=== PATIENT | female | born 1985 | race Caucasian/White ===

== ENCOUNTER 2019-01-01 18:23 | Emergency (ER) | payer OTHER ==
[~2019-01-01] VITALS: Ht 149.9 cm; Wt 59.0 kg
[2019-01-01 18:55] VITALS: BP 164/98
--- NOTE | 2019-01-01 18:57 | PHYS DOC ---
Past Medical History Past Medical History: Kidney Stone Adult General Chief Complaint Chief Complaint: BACK PAIN - NO INJURY HPI HPI Patient is a 33 year old female presents for low back pain that started today. Patient reports is treated for UTI last week, has completed antibiotics. She does have some dysuria. She is not having any vomiting. She has a history of kidney stones. She reports has progressively gotten worse and she cannot move without having back pain. She denies any falls or injury. Denies numbness or tingling, loss of bladder or bowel function. Review of Systems Review of Systems Constitutional: Denies fever or chills [] Eyes: Denies change in visual acuity, redness, or eye pain [] HENT: Denies nasal congestion or sore throat [] Respiratory: Denies cough or shortness of breath [] Cardiovascular: No additional information not addressed in HPI [] GI: Denies abdominal pain, nausea, vomiting, bloody stools or diarrhea [] : + dysuria [] Musculoskeletal: + back pain [] Integument: Denies rash or skin lesions [] Neurologic: Denies headache, focal weakness or sensory changes [] Endocrine: Denies polyuria or polydipsia [] All other systems were reviewed and found to be within normal limits, except as documented in this note. Current Medications Current Medications Current Medications Medications (Trade) Dose Ordered Sig/[facility] Start Time Stop Time Status Last Admin Dose Admin Cyclobenzaprine HCl (Flexeril) 10 mg 1X ONCE 01/01/19 19:00 01/01/19 19:01 DC 01/01/19 19:09 10 MG Ketorolac Tromethamine (Toradol Im) 30 mg 1X ONCE 01/01/19 19:00 01/01/19 19:01 DC 01/01/19 19:09 30 MG Allergies Allergies Allergies Coded Allergies Type Severity Reaction Last Updated Verified Penicillins Allergy Intermediate Swelling 09/29/15 Yes morphine Allergy Mild Itching 09/29/15 Yes Physical Exam Physical Exam Constitutional: Well developed, well nourished, no acute distress, non-toxic appearance. [] Cardiovascular:Heart rate regular rhythm, no murmur [] Lungs & Thorax: Bilateral breath sounds clear to auscultation [] Abdomen: Bowel sounds normal, soft, no tenderness, no masses, no pulsatile masses. [] Skin: Warm, dry, no erythema, no rash. [] Back: LUMBAR TENDERNESS, no CVA tenderness. [] Extremities: No tenderness, no cyanosis, no clubbing, ROM intact, no edema. [] Neurologic: Alert and oriented X 3, normal motor function, normal sensory function, no focal deficits noted. [] Psychologic: Affect normal, judgement normal, mood normal. [] Current Patient Data Vital Signs Vital Signs Date Time Temp Pulse Resp B/P (MAP) Pulse Ox O2 Delivery O2 Flow Rate FiO2 01/01/19 18:55 98.3 73 16 164/98 (120) 97 Room Air 98.3 Lab Values Laboratory Tests Test 01/01/19 19:02 01/01/19 19:03 Urine Collection Type Unknown Urine Color Yellow Urine Clarity Clear Urine pH 6.5 Urine Specific [place] 1.020 Urine Protein Negative mg/dL (NEG-TRACE) Urine Glucose (UA) Negative mg/dL (NEG) Urine Ketones (Stick) Negative mg/dL (NEG) Urine Blood Negative (NEG) Urine Nitrite Negative (NEG) Urine Bilirubin Negative (NEG) Urine Urobilinogen Dipstick 1.0 mg/dL (0.2 mg/dL) Urine Leukocyte Esterase Trace (NEG) Urine RBC 0 /HPF (0-2) Urine WBC 1-4 /HPF (0-4) Urine Squamous Epithelial Cells Many /LPF Urine Bacteria Many /HPF (0-FEW) Urine Mucus Marked /LPF POC Urine HCG, Qualitative Hcg negative (Negative) EKG EKG [] Radiology/Procedures Radiology/Procedures [] Course & Med Decision Making Course & Med Decision Making Pertinent Labs and Imaging studies reviewed. (See chart for details) [UA negative, appears contaminated. Patient treated for musculoskeletal back pain. Signs or symptoms of cauda equina syndrome, stable for discharge home.] Dragon Disclaimer Dragon Disclaimer This electronic medical record was generated, in whole or in part, using a voice recognition dictation system. Departure Departure Impression: Primary Impression: Acute back pain Disposition: 01 HOME, SELF-CARE Condition: STABLE Referrals: MIRANDA SALCEDO MD (PCP) Patient Instructions: Back Pain, Adult Scripts Naproxen (NAPROSYN) 500 Mg Tablet 500 MG PO BID PRN for PAIN, #20 TAB Prov: CHATO WRAY AIR HOIST OPERATOR 01/01/19 Orphenadrine Citrate (ORPHENADRINE CITRATE) 100 Mg Tablet.er 1 TAB PO BID, #20 TAB 1 Refill Prov: CHATO WRAY APRN 01/01/19 CHATO WRAY APRN Jan 01, 2019 18:57
[2019-01-01] MEDS ORDERED: KETOROLAC 60 MG/2 ML VIAL. IM ONE (19:00)
[2019-01-01] MEDS ORDERED: CYCLOBENZAPRINE 10 MG TABLET. PO ONE (19:00)
[2019-01-01 19:11] LABS: BILIRUBIN,URINE NEGATIVE (NEG); CLARITY,URINE CLEAR; COLOR,URINE YELLOW; NITRITE,URINE NEGATIVE (NEG); PH,URINE 6.5; PROTEIN,URINE NEGATIVE (NEG-TRACE)
[2019-01-01 19:22] LABS: BACTERIA,URINE MANY /HPF (0-FEW); RBC,URINE 0 /HPF (0-2); SQUAMOUS EPITHELIAL CELL,UR MANY /LPF
[2019-01-01] MEDS ORDERED: ORPH100T PO (19:34)
[2019-01-01] MEDS ORDERED: NAPR-683 PO (19:34)
== END 2019-01-01 19:45 | disposition home or self-care (01) ==
LOC: ER 18:23
DX: M54.5 Low back pain (principal); R30.0 Dysuria; Z87.442 Personal history of urinary calculi; Z87.440 Personal history of urinary (tract) infections; Z88.0 Allergy status to penicillin; Z88.5 Allergy status to narcotic agent
CPT/HCPCS: 81001; 81025; 87086; 87186; 96372; 99283; J1885

== ENCOUNTER 2020-06-25 22:38 | Emergency (ER) | payer MEDICAID, OTHER ==
[~2020-06-25] VITALS: Ht 149.9 cm; Wt 61.4 kg
[~2020-06-25 22:38] MED LIST: NAPR-683 PO; ORPH100T PO
[2020-06-25] MEDS ORDERED: IV NORMAL SALINE 1000ML BAG 1,000 ML IV ONE ×2 (22:45→23:45)
[2020-06-25 23:22] LABS: BASO # 0.1 x10^3/uL (0.0-0.2); BASO % 1 % (0-3); EOS # 0.1 x10^3/uL (0.0-0.7); EOS % 1 % (0-3); HEMATOCRIT 44.8 % (36.0-47.0); HEMOGLOBIN 15.5 g/dL (12.0-15.5); LYMPH # 2.4 x10^3/uL (1.0-4.8); LYMPH % 16 % (24-48); MEAN CORPUSCULAR HEMOGLOBIN 36 pg (25-35); MEAN CORPUSCULAR HGB CONC 35 g/dL (31-37); MEAN CORPUSCULAR VOLUME 104 fL (79-100); MONO # 0.7 x10^3/uL (0.0-1.1); MONO % 5 % (0-9); NEUT # 11.9 x10^3/uL (1.8-7.7); NEUT % 78 % (31-73); PLATELET COUNT 261 x10^3/uL (140-400); RED BLOOD COUNT 4.31 x10^6/uL (3.50-5.40); RED CELL DISTRIBUTION WIDTH 14.3 % (11.5-14.5); WHITE BLOOD COUNT 15.2 x10^3/uL (4.0-11.0)
--- NOTE | 2020-06-25 23:29 | PHYS DOC ---
Past Medical History Past Medical History: Kidney Stone Past Surgical History: Cholecystectomy, Smoking Status: Current Every Day Smoker Alcohol Use: Heavy Drug Use: Marijuana General Adult EDM: Chief Complaint: ABDOMINAL PAIN HPI: HPI: The history was obtained from the patient. Patient is a 34-year-old female with PMH cholecystectomy, pancreatitis, alcohol abuse who presents with a chief complaint of epigastric abdominal comfort that began suddenly 3 hours prior to arrival. She states the pain is sharp in nature. States pain is constant. She states she did try at home hydrocodone that she was recently prescribed for tooth pain which made her pain worse. She notes nausea without vomiting. States this feels similar to previous pancreatitis episodes. Notes that she drinks one half fifth of rum daily but does not drink today. Notes a history of pancreatitis induced by gallstones but had her gallbladder removed. Denies fe vers. Denies chest pain or shortness of breath. Denies syncope. Denies urinary symptoms. No other complaints. Review of Systems: Review of Systems: Constitutional: Denies fever or chills. [] Eyes: Denies change in visual acuity. [] HENT: Denies nasal congestion or sore throat. [] Respiratory: Denies cough or shortness of breath. [] Cardiovascular: Denies chest pain or edema. [] GI: Positive for abdominal pain and nausea : Denies dysuria. [] Musculoskeletal: Denies back pain or joint pain. [] Integument: Denies rash. [] Neurologic: Denies headache, focal weakness or sensory changes. [] Endocrine: Denies polyuria or polydipsia. [] Lymphatic: Denies swollen glands. [] Psychiatric: Denies depression or anxiety. [] Heart Score: Risk Factors: Risk Factors: DM, Current or recent (<one month) smoker, HTN, HLP, family history of CAD, obesity. Risk Scores: Score 0 - 3: 2.5% MACE over next 6 weeks - Discharge Home Score 4 - 6: 20.3% MACE over next 6 weeks - Admit for Clinical Observation Score 7 - 10: 72.7% MACE over next 6 weeks - Early Invasive Strategies Current Medications: Current Medications Medications (Trade) Dose Ordered Sig/El[facility] Start Time Stop Time Status Last Admin Dose Admin Diphenhydramine HCl (Benadryl) 50 mg 1X ONCE 06/25/20 23:30 06/25/20 23:31 UNV Metoclopramide HCl (Reglan Vial) 10 mg 1X ONCE 06/25/20 23:30 06/25/20 23:31 Morphine Sulfate (Morphine Sulfate) 4 mg 1X ONCE 06/25/20 23:30 06/25/20 23:31 Sodium Chloride 1,000 ml @ 1,000 mls/hr 1X ONCE 06/25/20 22:45 06/25/20 23:44 Allergies: Allergies: Allergies Coded Allergies Type Severity Reaction Last Updated Verified Penicillins Allergy Intermediate Swelling 09/29/15 Yes morphine Allergy Mild Itching 09/29/15 Yes sulfamethoxazole Allergy Unknown 06/25/20 Yes trimethoprim Allergy Unknown 06/25/20 Yes Physical Exam: PE: Constitutional: Well developed, well nourished, no acute distress, non-toxic appearance. [] HENT: Normocephalic, atraumatic, bilateral external ears normal, oropharynx moist, no oral exudates, nose normal. [] Eyes: PERRLA, EOMI, conjunctiva normal, no discharge. [] Neck: Normal range of motion, no tenderness, supple, no stridor. [] Cardiovascular:Heart rate regular rhythm, no murmur [] Lungs & Thorax: Bilateral breath sounds clear to auscultation [] Abdomen: Tenderness palpation in the epigastric region. No involuntary guarding or rigidity noted. No acute peritonitis. Skin: Warm, dry, no erythema, no rash. [] Back: No tenderness, no CVA tenderness. [] Extremities: No tenderness, no cyanosis, no clubbing, ROM intact, no edema. [] Neurologic: Alert and oriented X 3, normal motor function, normal sensory function, no focal deficits noted. [] Psychologic: Affect normal, judgement normal, mood normal. [] Current Patient Data: Labs: Laboratory Tests Test 06/25/20 23:13 06/25/20 23:55 06/26/20 00:04 White Blood Count 15.2 x10^3/uL Red Blood Count 4.31 x10^6/uL Hemoglobin 15.5 g/dL Hematocrit 44.8 % Mean Corpuscular Volume 104 fL Mean Corpuscular Hemoglobin 36 pg Mean Corpuscular Hemoglobin Concent 35 g/dL Red Cell Distribution Width 14.3 % Platelet Count 261 x10^3/uL Neutrophils (%) (Auto) 78 % Lymphocytes (%) (Auto) 16 % Monocytes (%) (Auto) 5 % Eosinophils (%) (Auto) 1 % Basophils (%) (Auto) 1 % Neutrophils # (Auto) 11.9 x10^3/uL Lymphocytes # (Auto) 2.4 x10^3/uL Monocytes # (Auto) 0.7 x10^3/uL Eosinophils # (Auto) 0.1 x10^3/uL Basophils # (Auto) 0.1 x10^3/uL Sodium Level 136 mmol/L Potassium Level 2.9 mmol/L Chloride Level 101 mmol/L Carbon Dioxide Level 24 mmol/L Anion Gap 11 Blood Urea Nitrogen 4 mg/dL Creatinine 0.8 mg/dL Estimated GFR (Cockcroft-Gault) 81.6 BUN/Creatinine Ratio 5 Glucose Level 158 mg/dL Calcium Level 8.8 mg/dL Magnesium Level 1.5 mg/dL Total Bilirubin 1.0 mg/dL Aspartate Amino Transf (AST/SGOT) 249 U/L Alanine Aminotransferase (ALT/SGPT) 53 U/L Alkaline Phosphatase 135 U/L Total Protein 7.3 g/dL Albumin 3.3 g/dL Albumin/Globulin Ratio 0.8 Lipase 49 U/L Ethyl Alcohol Level < 10 mg/dL Urine Collection Type Unknown Urine Color Otilia Urine Clarity Clear Urine pH 6.0 Urine Specific [place] >=1.030 Urine Protein 30 mg/dL Urine Glucose (UA) Negative mg/dL Urine Ketones (Stick) Negative mg/dL Urine Blood Negative Urine Nitrite Negative Urine Bilirubin Small Urine Urobilinogen Dipstick 1.0 mg/dL Urine Leukocyte Esterase Negative Urine RBC 0 /HPF Urine WBC 5-10 /HPF Urine Squamous Epithelial Cells Many /LPF Urine Bacteria Many /HPF Urine Mucus Marked /LPF Bedside Urine HCG, Qualitative Hcg negative Current Medications Medications (Trade) Dose Ordered Sig/[facility] Route PRN Reason Start Time Stop Time Status Last Admin Dose Admin Sodium Chloride 1,000 ml @ 1,000 mls/hr 1X ONCE IV 06/25/20 22:45 06/25/20 23:44 DC 06/25/20 23:52 Metoclopramide HCl (Reglan Vial) 10 mg 1X ONCE IVP 06/25/20 23:30 06/25/20 23:31 DC 06/25/20 23:52 Morphine Sulfate (Morphine Sulfate) 4 mg 1X ONCE IV 06/25/20 23:30 06/25/20 23:31 DC 06/25/20 23:53 Diphenhydramine HCl (Benadryl) 50 mg 1X ONCE IVP 06/25/20 23:30 06/25/20 23:31 DC 06/25/20 23:53 Sodium Chloride 1,000 ml @ 200 mls/hr 1X ONCE IV 06/25/20 23:45 06/26/20 04:44 06/26/20 01:30 Magnesium Sulfate 50 ml @ 50 mls/hr 1X ONCE IV 06/25/20 23:55 06/26/20 00:54 DC Potassium Chloride/Water 100 ml @ 100 mls/hr Q1H IV 06/26/20 00:00 06/26/20 03:59 06/26/20 01:32 Iohexol (Omnipaque 300 Mg/ml) 75 ml 1X ONCE IV 06/26/20 00:30 06/26/20 00:31 DC 06/26/20 00:55 Info (CONTRAST GIVEN -- Rx MONITORING) 1 each PRN DAILY PRN MC SEE COMMENTS 06/26/20 00:30 06/28/20 00:29 Ciprofloxacin/ Dextrose 200 ml @ 200 mls/hr 1X ONCE IV 06/26/20 00:30 06/26/20 01:29 DC 06/26/20 01:36 Folic Acid (Folic Acid) 1 mg 1X ONCE PO 06/26/20 00:45 06/26/20 00:46 DC 06/26/20 01:32 Thiamine Mononitrate (Vitamin B-1) 100 mg 1X ONCE PO 06/26/20 00:45 06/26/20 00:46 DC 06/26/20 01:32 Vital Signs: Vital Signs Date Time Temp Pulse Resp B/P (MAP) Pulse Ox O2 Delivery O2 Flow Rate FiO2 06/25/20 23:53 20 99 Room Air Vital Signs Date Time Temp Pulse Resp B/P (MAP) Pulse Ox O2 Delivery O2 Flow Rate FiO2 06/25/20 23:53 20 99 Room Air EKG: EKG: [] EKG consistent with normal sinus rhythm. Ventricular rate of 66 bpm. Blackey normal. Left atrial enlargement appreciated. Intervals normal. No acute ischemic changes appreciated. Radiology/Procedures: Radiology/Procedures: [][facility] [address] [place] [address] IMAGING REPORT Signed PATIENT: FRAN HSU MACCOUNT: [id number] : 1985 LOCATION: ER AGE: 34 SEX: F EXAM STATUS: REG ER ORD. PHYSICIAN: DREW MCCULLOUGH DO REASON: epigastric pain. h/o pancreatitis PROCEDURE: CT ABD PELV W/ IV CONTRST ONLY INDICATION: Reason: epigastric pain. h/o pancreatitis / Spl. Instructions: [id number] 75ML / History: COMPARISON: December 2011 TECHNIQUE: Axial CT images obtained through the abdomen and pelvis with contrast. One or more of the following individualized dose reduction techniques were utilized for this examination: 1. Automated exposure control; 2. Adjustment of the mA and/or kV according to patient size; 3. Use of iterative reconstruction technique. FINDINGS: Abdominal aorta is not aneurysmal. Scattered plaque is seen. Liver is low density which can be seen with fatty infiltration. Postcholecystectomy. No peripancreatic fluid collection. Spleen unremarkable. No hydronephrosis. Urinary bladder is partially distended. Intrauterine device is seen. Nonobstructive right renal stone, 2 mm. Low-density lesion lower pole the right kidney which is typically benign in a patient of this age. No periappendiceal inflammation. There are some prominent fluid within the small bowel. No high-grade transition point to suggest obstruction. Intrauterine device at lower uterine segment with T portion extending into myometrium. IMPRESSION: * There are some mildly prominent loops of small bowel without evidence of a transition point to suggest obstruction. * No hydronephrosis or evidence of appendicitis Electronically signed by: Mireya Solano MD (06/26/2020 1:53 AM) [id number] DICTATED and SIGNED BY: MIREYA SOLANO MD DATE: 06/26/20 0153 Course & Med Decision Making: Course & Med Decision Making Pertinent Labs and Imaging studies reviewed. (See chart for details) [] Patient is a 34-year-old female presents with chief complaint of nausea with abdominal pain and loose stool. Initial vital signs unremarkable. Physical exam noted above. She does note a history of daily alcohol usage. Patient does have multiple electrolyte abnormalities including a potassium of 2.6. Low magnesium. Kidney function normal. Urinalysis does show findings concerning for infection. Leukocytosis of approximately 15,000. Could be related to her recent vomiting versus infection. CT imaging reveals no acute surgical abnormality. She does have some nonspecific inflammatory findings in the bowel. Patient did have her potassium initially replaced intravenously. She was given oral magnesium. I did discuss results of labs and imaging in great detail with the patient. I did recommend hospitalization for her severe electrolyte abnormality. Patient states due to childcare issues she cannot stay in the hospital. I did explain to the patient that severe electrolyte abnormalities can be undetectable until they are suddenly life-threatening. She did express understanding would like to leave AGAINST MEDICAL ADVICE. Patient does appear to have capacity at this time. She is alert and oriented x3. She does appear to have a basic understanding of her health care needs and potential consequences. She was encouraged to report back to emergency department at any time should she want to be reevaluated. Unfortunately she was unable to stay for intravenous magnesium replacement. She was given oral magnesium oxide. She will be discharged home with an oral course of potassium and magnesium. She also be discharged home with a course of ciprofloxacin given her multiple allergies to antibiotics. Return precautions discussed and understood. Philomena Disclaimer: Philomena Disclaimer: This electronic medical record was generated, in whole or in part, using a voice recognition dictation system. Departure Departure Impression: Primary Impression: Hypokalemia Additional Impressions: UTI (urinary tract infection) Qualified Codes: N39.0 - Urinary tract infection, site not specified Alcohol abuse Hypomagnesemia Disposition: 07 AGAINST MEDICAL ADVICE Condition: STABLE Referrals: VIKRAM MADRID MD (PCP) Patient Instructions: Hypokalemia Additional Instructions: Please return the emergency department at any time should you want to be reevaluated. He saw with your primary care physician in the next 2 to 3 days. [facility] [address] [place] [address] [facility] [address] [place] [address] [facility] [address] [place] [address] [facility] [address] [place] [address] [facility] [address] [place] [address] [facility] [address] [place] [address] [facility] [address] [place] [address] [facility] [address] [place] [address] [facility] [address] [place] [address] [facility] [address] [place] [address] Scripts Ciprofloxacin Hcl (CIPROFLOXACIN HCL) 250 Mg Tablet 1 TAB PO BID for 3 Days, #6 TAB Prov: DREW MCCULLOUGH DO 06/26/20 Ondansetron Hcl (ZOFRAN) 4 Mg Tablet 4 MG PO PRN TID PRN for NAUSEA, #15 nausea/vomiting Prov: DREW MCCULLOUGH DO 06/26/20 Magnesium Oxide (MAGNESIUM OXIDE) 400 Mg Tablet 1 TAB PO DAILY for 3 Days, #3 TAB 5 Refills Prov: DREW MCCULLOUGH DO 06/26/20 Potassium Chloride (POTASSIUM CHLORIDE ) 20 Meq Tablet.er 40 MEQ PO DAILY for SUPPLEMENT for 3 Days, #6 TAB.SR Prov: DREW MCCULLOUGH DO 06/26/20 Justicifation of Admission Dx: Justifications for Admission: Justification of Admission Dx: N/A DREW MCCULLOUGH DO Jun 25, 2020 23:29
[2020-06-25] MEDS ORDERED: MORPHINE SULFATE 4 MG/ML VIAL. IV ONE (23:30)
[2020-06-25] MEDS ORDERED: diphenhydrAMINE 50 MG/ML VIAL IVP ONE (23:30)
[2020-06-25] MEDS ORDERED: METOCLOPRAMIDE HCL 10 MG/2 ML VIAL. IVP ONE (23:30)
[2020-06-25 23:37] VITALS: BP 194/90
[2020-06-25 23:42] LABS: ALBUMIN 3.3 g/dL (3.4-5.0); ALBUMIN/GLOBULIN RATIO 0.8 (1.0-1.7); CALCIUM 8.8 mg/dL (8.5-10.1); CREATININE 0.8 mg/dL (0.6-1.0); GFR 81.6; TOTAL PROTEIN 7.3 g/dL (6.4-8.2)
[2020-06-25 23:45] LABS: POTASSIUM 2.9 mmol/L (3.5-5.1)
[2020-06-25] MEDS ORDERED: MAGNESIUM SULFATE 2GM 50 ML IV ONE (23:55)
[2020-06-26 00:08] LABS: BILIRUBIN,URINE SMALL (NEG); COLOR,URINE AMBER; NITRITE,URINE NEGATIVE (NEG); PROTEIN,URINE 30 mg/dL (NEG-TRACE)
[2020-06-26 00:21] LABS: CLARITY,URINE CLEAR; SQUAMOUS EPITHELIAL CELL,UR MANY /LPF
[2020-06-26 00:22] LABS: BACTERIA,URINE MANY /HPF (0-FEW); RBC,URINE 0 /HPF (0-2)
[2020-06-26] MEDS ORDERED: CIPROFLOXACIN 400MG PREMIX 200 ML IV ONE (00:30)
[2020-06-26] MEDS ORDERED: CONTRAST GIVEN. MC PRN (00:30)
[2020-06-26] MEDS ORDERED: IOHEXOL 300 MG/ML 100ML VIAL. IV ONE (00:30)
[2020-06-26] MEDS ORDERED: FOLIC ACID 1 MG TABLET. PO ONE (00:45)
[2020-06-26] MEDS ORDERED: THIAMINE 100 MG TABLET. PO ONE (00:45)
[2020-06-26] MEDS: POTASSIUM CHLORIDE 20MEQ 100 ML IV SCH ×3 (01:31→03:05)
--- NOTE | 2020-06-26 01:56 | RAD ---
INDICATION: Reason: epigastric pain. h/o pancreatitis / Spl. Instructions: [id number] 75ML / History: COMPARISON: December 2011 TECHNIQUE: Axial CT images obtained through the abdomen and pelvis with contrast. One or more of the following individualized dose reduction techniques were utilized for this examination: 1. Automated exposure control; 2. Adjustment of the mA and/or kV according to patient size; 3. Use of iterative reconstruction technique. FINDINGS: Abdominal aorta is not aneurysmal. Scattered plaque is seen. Liver is low density which can be seen with fatty infiltration. Postcholecystectomy. No peripancreatic fluid collection. Spleen unremarkable. No hydronephrosis. Urinary bladder is partially distended. Intrauterine device is seen. Nonobstructive right renal stone, 2 mm. Low-density lesion lower pole the right kidney which is typically benign in a patient of this age. No periappendiceal inflammation. There are some prominent fluid within the small bowel. No high-grade transition point to suggest obstruction. Intrauterine device at lower uterine segment with T portion extending into myometrium. IMPRESSION: * There are some mildly prominent loops of small bowel without evidence of a transition point to suggest obstruction. * No hydronephrosis or evidence of appendicitis Electronically signed by: Eitan Palafox MD (06/26/2020 1:53 AM) [id number]
[2020-06-26] MEDS ORDERED: MAGN400T5 PO (02:23)
[2020-06-26] MEDS ORDERED: CIPR250T PO (02:23)
[2020-06-26] MEDS ORDERED: ONDA4TAB7 PO (02:23)
[2020-06-26] MEDS ORDERED: POTA20TA4 PO (02:23)
[2020-06-26] MEDS ORDERED: MAGNESIUM OXIDE 400 MG TABLET PO ONE (02:30)
--- NOTE | 2020-06-26 07:20 | EKG ---
[facility] [address] [place] [address] Test Date: 2020-06-26 Test Time: 02:28:26 Pat Name: FRAN HSU Department: Room: Gender: F Firewall Engineer: : 1985 Requested By: DREW MCCULLOUGH Order Number: [id number] Reading MD: Measurements Intervals [place] Rate: 66 P: 47 CA: 158 QRS: 24 QRSD: 66 T: 31 QT: 428 QTc: 451 Interpretive Statements SINUS RHYTHM LEFT ATRIAL ABNORMALITY QRS(T) CONTOUR ABNORMALITY CONSISTENT WITH ANTEROSEPTAL INFARCT AGE UNDETERMINED ABNORMAL ECG RI6.02 No previous ECG available for comparison
== END 2020-06-26 03:16 | disposition left against medical advice (07) ==
LOC: ER 22:38
DX: N39.0 Urinary tract infection, site not specified (principal); E87.6 Hypokalemia; E83.42 Hypomagnesemia; F10.10 Alcohol abuse, uncomplicated; R11.0 Nausea; F12.90 Cannabis use, unspecified, uncomplicated; F17.200 Nicotine dependence, unspecified, uncomplicated; Z90.49 Acquired absence of other specified parts of digestive tract; Z98.890 Other specified postprocedural states; Z88.0 Allergy status to penicillin; Z87.442 Personal history of urinary calculi; Z88.6 Allergy status to analgesic agent; Z88.2 Allergy status to sulfonamides; Z88.8 Allergy status to other drugs, medicaments and biological substances
CPT/HCPCS: 36415; 74177; 80053; 81001; 81025; 83690; 83735; 85025; 87086; 93005; 96361; 96365; 96375; 99285; G0480; J0744; J1200; J2270; J2765; J3480; J7030; Q9967; 87077; 87186

== ENCOUNTER 2020-07-06 19:06 | Emergency (ER) | payer MEDICAID ==
[~2020-07-06] VITALS: Ht 149.9 cm; Wt 61.3 kg
[~2020-07-06 19:06] MED LIST changes: +CIPR250T PO; +MAGN400T5 PO; +ONDA4TAB7 PO; +POTA20TA4 PO
[2020-07-06] MEDS ORDERED: IV NORMAL SALINE 1000ML BAG 1,000 ML IV ONE (20:30)
[2020-07-06] MEDS ORDERED: ONDANSETRON PF 4 MG/2 ML VIAL. IVP ONE (20:30)
[2020-07-06] MEDS ORDERED: FAMOTIDINE 20 MG/2 ML VIAL IVP ONE (20:30)
[2020-07-06] MEDS ORDERED: KETOROLAC 15 MG/ML VIAL. IVP ONE (20:30)
[2020-07-06 20:39] LABS: CLARITY,URINE TURBID; COLOR,URINE ORANGE
[2020-07-06 20:48] LABS: SQUAMOUS EPITHELIAL CELL,UR OCC /LPF
[2020-07-06 20:50] LABS: BACTERIA,URINE 0 /HPF (0-FEW); RBC,URINE 0 /HPF (0-2); WBC,URINE 0 /HPF (0-4)
[2020-07-06 20:51] LABS: AMORPHOUS SEDIMENT,UR PRESENT /HPF
--- NOTE | 2020-07-06 21:03 | PHYS DOC ---
Past Medical History Past Medical History: Gallstones, Hypertension, Kidney Stone, Pancreatitis, Other Additional Past Medical Histor: ETOH Past Surgical History: Cholecystectomy, Smoking Status: Current Every Day Smoker Alcohol Use: Heavy Additional Information: REPORTS DRINKING 1/2 PINT RUM DAILY Drug Use: Marijuana General Adult EDM: Chief Complaint: ABDOMINAL PAIN HPI: HPI: Patient is a 34 year old F who presents with periumbilical abdominal pain that began this morning when she woke up. She rated it a 11/10 this morning, and is now a 8/10. Does not radiate anywhere and describes it as a burning pain. She states that nothing makes the pain better, and drinking fluids makes it worse. She complains of nausea and has vomited about 6x today, she is unable to keep any fluids down. She states that she drank about 1/2-1 pint this weekend. She states that she has had pancreatitis in the past and this pain feels similar. Review of Systems: Review of Systems: Constitutional: Denies fever or chills Eyes: Denies redness or eye pain HENT: Denies nasal congestion or sore throat Respiratory: Denies cough or shortness of breath Cardiovascular: Denies chest pain or palpitations : Denies dysuria or hematuria Musculoskeletal: Denies back pain or joint pain Integument: Denies rash or skin lesions Neurologic: Denies headache or changes in vision. Complete systems were reviewed and found to be within normal limits, except as documented in this note. Current Medications: Current Medications Medications (Trade) Dose Ordered Sig/[facility] Start Time Stop Time Status Last Admin Dose Admin Famotidine (Pepcid Vial) 20 mg 1X ONCE 07/06/20 20:30 07/06/20 20:35 DC Ketorolac Tromethamine (Toradol 15mg Vial) 15 mg 1X ONCE 07/06/20 20:30 07/06/20 20:35 DC Ondansetron HCl (Zofran) 4 mg 1X ONCE 07/06/20 20:30 07/06/20 20:35 DC Sodium Chloride 1,000 ml @ 1,000 mls/hr 1X ONCE 07/06/20 20:30 07/06/20 21:29 Allergies: Allergies: Allergies Coded Allergies Type Severity Reaction Last Updated Verified Penicillins Allergy Intermediate Swelling 09/29/15 Yes morphine Allergy Mild Itching 09/29/15 Yes sulfamethoxazole Allergy Unknown 06/25/20 Yes trimethoprim Allergy Unknown 06/25/20 Yes Physical Exam: PE: Constitutional: Well developed, well nourished female. HENT: Normocephalic, atraumatic Eyes: Conjunctiva normal, no discharge Neck: Normal range of motion, supple Lungs & Thorax: No respiratory distress, equal chest rise and fall Abdomen: Soft, tender to palpation in midline. No hepatomegaly. Skin: Warm, dry, no erythema, no rash Back: No tenderness, no CVA tenderness Extremities: ROM intact, no edema Neurologic: Alert and oriented X 3, no focal deficits noted Psychologic: Affect normal, judgment normal Current Patient Data: Labs: Laboratory Tests Test 07/06/20 19:30 07/06/20 19:37 Urine Collection Type Unknown Urine Color [place] Urine Clarity Turbid Urine pH (<5.0-8.0) Urine Specific [place] (1.000-1.030) Urine Protein mg/dL (NEG-TRACE) Urine Glucose (UA) mg/dL (NEG) Urine Ketones (Stick) mg/dL (NEG) Urine Blood (NEG) Urine Nitrite (NEG) Urine Bilirubin (NEG) Urine Urobilinogen Dipstick mg/dL (0.2 mg/dL) Urine Leukocyte Esterase (NEG) Urine RBC 0 /HPF (0-2) Urine WBC 0 /HPF (0-4) Urine Squamous Epithelial Cells Occ /LPF Urine Amorphous Sediment Present /HPF Urine Bacteria 0 /HPF (0-FEW) Urine Mucus Marked /LPF POC Urine HCG, Qualitative Hcg negative (Negative) Vital Signs: Vital Signs Date Time Temp Pulse Resp B/P (MAP) Pulse Ox O2 Delivery O2 Flow Rate FiO2 07/06/20 19:15 100.6 122 18 106/63 (77) 98 Room Air 100.6 EKG: EKG: @20:40 Normal sinuse rhythm with no ST elevations or T wave inversions. QRS 70ms, QT 362ms, QTc 458ms. Radiology/Procedures: Radiology/Procedures: PROCEDURE: CT ABD PELV W/ IV CONTRST ONLY Examination: CT of the abdomen pelvis with IV contrast HISTORY: History of abdominal pain, fever COMPARISON: 06/25/2020 TECHNIQUE: Axial CT images of the abdomen pelvis were performed with IV contrast. Coronal and sagittal reformats are performed. Exposure: One or more of the following individualized dose reduction techniques were utilized for this examination: 1. Automated exposure control 2. Adjustment of the mA and/or kV according to patient size 3. Use of iterative reconstruction technique FINDINGS: The bibasilar lungs are clear. No evidence of free air identified in the abdomen. The visualized liver, spleen, adrenals grossly appears unremarkable. Cholecystectomy clips identified. The stomach is mildly distended. The visualized pancreas grossly appears unremarkable. The small bowel is nondilated. There is mild diffuse thickened appearance of the wall of the colon throughout with surrounding mild fat stranding likely diffuse colitis. Urinary bladder is mildly distended. The appendix is normal the bilateral kidneys enhance symmetrically. Punctate 2 mm calculi identified in the bilateral kidneys. Cystic structure identified in the right kidney likely a cyst. No evidence of lytic bony destructive lesion. IMPRESSION: 1. Diffuse thickened appearance of the wall of the colon surrounding fat stranding likely colitis. 2. Punctate bilateral intrarenal collecting system calculi. Electronically signed by: Won Fuentes MD (07/07/2020 12:00 AM) [id number] Course & Med Decision Making: Course & Med Decision Making 34 yo F presented with periumbilical abdominal pain and nausea/vomiting since this morning. History of pancreatitis and alcohol abuse. States she drank 1/2-1 pint of liquor both Monday and Monday. Nausea and pain controlled with zofran and torodol respectively. 1L NS IVF given. Urine negative. Abd/pelvis CT revealed diffuse thickened appearance of the wall of the colon surrounding fat stranding most likely colitis. Pain medication and empiric antibiotics given upon d/c. (See chart for details) Dragon Disclaimer: [place]omena Disclaimer: This electronic medical record was generated, in whole or in part, using a voice recognition dictation system. Departure Departure Impression: Primary Impression: Colitis Additional Impression: Alcohol abuse Disposition: 01 HOME, SELF-CARE Condition: STABLE Referrals: VIKRAM MADRID MD (PCP) ZINA OCHOA MD Patient Instructions: Alcohol and Drug Addiction, Finding Treatment, Alcohol, FAQs, Colitis Scripts Famotidine (PEPCID) 20 Mg Tablet 20 MG PO BID, #10 TAB Prov: VIKRAM SO DO 07/07/20 Hydrocodone/Apap 5-325 (NORCO 5-325 TABLET) 1 Each Tablet 1 TAB PO PRN Q6HRS PRN for PAIN, #10 TAB 0 Refills Prov: VIKRAM SO DO 07/07/20 Ondansetron (ONDANSETRON ODT) 4 Mg Tab.rapdis 1 TAB PO PRN Q6-8HRS PRN for NAUSEA, #16 TAB Prov: VIKRAM SO DO 07/07/20 Metronidazole (FLAGYL) 500 Mg Tablet 500 MG PO TID, #21 TAB Prov: VIKRAM SO DO 07/07/20 Ciprofloxacin Hcl (CIPRO) 500 Mg Tablet 1 TAB PO BID, #14 TAB Prov: VIKRAM SO DO 07/07/20 Justicifation of Admission Dx: Justifications for Admission: Justification of Admission Dx: N/A VIKRAM SO DO Jul 06, 2020 21:03
[2020-07-06 21:56] LABS: BASO # 0.1 x10^3/uL (0.0-0.2); BASO % 1 % (0-3); EOS % 0 % (0-3); LYMPH # 2.8 x10^3/uL (1.0-4.8); LYMPH % 16 % (24-48); MEAN CORPUSCULAR HEMOGLOBIN 36 pg (25-35); MEAN CORPUSCULAR HGB CONC 35 g/dL (31-37); MEAN CORPUSCULAR VOLUME 103 fL (79-100); MONO # 1.3 x10^3/uL (0.0-1.1); MONO % 7 % (0-9); NEUT # 13.3 x10^3/uL (1.8-7.7); NEUT % 76 % (31-73); PLATELET COUNT 352 x10^3/uL (140-400); RED BLOOD COUNT 4.47 x10^6/uL (3.50-5.40); RED CELL DISTRIBUTION WIDTH 13.9 % (11.5-14.5); WHITE BLOOD COUNT 17.6 x10^3/uL (4.0-11.0)
[2020-07-06 22:07] LABS: PROTHROMBIN TIME PATIENT 13.6 SEC (11.7-14.0)
[2020-07-06 22:18] LABS: % BANDS 1 % (0-9); % LYMPHS 14 % (24-48); % MONOS 6 % (0-10); % SEGS 79 % (35-66); PLT ESTIMATE ADEQUATE (ADEQUATE)
[2020-07-06 22:24] LABS: AMPHETAMINE/METHAMPHETAMINE NEG (NEG); BARBITURATES NEG (NEG); BENZODIAZEPINES NEG (NEG); CANNABINOIDS POS (NEG); COCAINE NEG (NEG); METHADONE NEG (NEG); OPIATES NEG (NEG); PHENCYCLIDINE NEG (NEG)
[2020-07-06 23:33] LABS: CALCIUM 8.8 mg/dL (8.5-10.1); CREATININE 0.8 mg/dL (0.6-1.0); GFR 81.6; POTASSIUM 3.5 mmol/L (3.5-5.1)
[2020-07-06 23:38] LABS: ALBUMIN 3.4 g/dL (3.4-5.0); ALBUMIN/GLOBULIN RATIO 1.1 (1.0-1.7); TOTAL BILIRUBIN 0.9 mg/dL (0.2-1.0); TOTAL PROTEIN 6.5 g/dL (6.4-8.2)
[2020-07-06] MEDS ORDERED: CONTRAST GIVEN. MC PRN (23:45)
[2020-07-06 23:48] LABS: CREATINE KINASE 58 U/L (26-192)
[2020-07-07] MEDS ORDERED: IOHEXOL 300 MG/ML 100ML VIAL. IV ONE
--- NOTE | 2020-07-07 00:03 | RAD ---
Examination: CT of the abdomen pelvis with IV contrast HISTORY: History of abdominal pain, fever COMPARISON: 06/25/2020 TECHNIQUE: Axial CT images of the abdomen pelvis were performed with IV contrast. Coronal and sagittal reformats are performed. Exposure: One or more of the following individualized dose reduction techniques were utilized for this examination: 1. Automated exposure control 2. Adjustment of the mA and/or kV according to patient size 3. Use of iterative reconstruction technique FINDINGS: The bibasilar lungs are clear. No evidence of free air identified in the abdomen. The visualized liver, spleen, adrenals grossly appears unremarkable. Cholecystectomy clips identified. The stomach is mildly distended. The visualized pancreas grossly appears unremarkable. The small bowel is nondilated. There is mild diffuse thickened appearance of the wall of the colon throughout with surrounding mild fat stranding likely diffuse colitis. Urinary bladder is mildly distended. The appendix is normal the bilateral kidneys enhance symmetrically. Punctate 2 mm calculi identified in the bilateral kidneys. Cystic structure identified in the right kidney likely a cyst. No evidence of lytic bony destructive lesion. IMPRESSION: 1. Diffuse thickened appearance of the wall of the colon surrounding fat stranding likely colitis. 2. Punctate bilateral intrarenal collecting system calculi. Electronically signed by: Won Fuentes MD (07/07/2020 12:00 AM) [id number]
[2020-07-07] MEDS ORDERED: ONDANSETRON PF 4 MG/2 ML VIAL. IVP ONE (01:00)
[2020-07-07 01:30] VITALS: BP 181/105
[2020-07-07] MEDS ORDERED: metroNIDAZOLE 500 MG TABLET PO ONE (01:30)
[2020-07-07] MEDS ORDERED: CIPROFLOXACIN HCL 250 MG TABLET. PO ONE (01:30)
[2020-07-07] MEDS ORDERED: HYDR-3164 PO (01:31)
[2020-07-07] MEDS ORDERED: METR500T PO (01:31)
[2020-07-07] MEDS ORDERED: ONDA4TAB12 PO (01:31)
[2020-07-07] MEDS ORDERED: FAMO-63 PO (01:31)
[2020-07-07] MEDS ORDERED: CIPR500T94 PO (01:31)
--- NOTE | 2020-07-07 04:12 | EKG ---
[facility] [address] [place] [address] Test Date: 2020-07-06 Test Time: 20:40:57 Pat Name: FRAN HSU Department: Room: Gender: F [employer]: : 1985 Requested By: VIKRAM SO Order Number: [id number] Reading MD: Measurements Intervals [place] Rate: 95 P: 50 RI: 138 QRS: 18 QRSD: 70 T: 46 QT: 362 QTc: 458 Interpretive Statements SINUS RHYTHM LEFT ATRIAL ABNORMALITY QRS(T) CONTOUR ABNORMALITY CONSISTENT WITH SEPTAL INFARCT AGE UNDETERMINED ABNORMAL ECG RI6.02 No previous ECG available for comparison
== END 2020-07-07 01:42 | disposition home or self-care (01) ==
LOC: ER 19:06
DX: K52.9 Noninfective gastroenteritis and colitis, unspecified (principal); F10.20 Alcohol dependence, uncomplicated; Y90.0 Blood alcohol level of less than 20 mg/100 ml; I10 Essential (primary) hypertension; F17.200 Nicotine dependence, unspecified, uncomplicated; Z87.442 Personal history of urinary calculi; Z88.0 Allergy status to penicillin; Z88.1 Allergy status to other antibiotic agents; Z88.2 Allergy status to sulfonamides; Z88.5 Allergy status to narcotic agent
CPT/HCPCS: 36415; 74177; 80053; 80307; 81001; 81025; 82553; 83690; 84484; 85007; 85025; 85610; 85730; 93005; 96361; 96374; 96375; 96376; 99285; G0480; J1885; J2405; J3490; J7030; Q9967